=== PATIENT | male | born 1950 | race Two or more races ===

== ENCOUNTER 2016-10-21 19:42 | Emergency (ER) | payer SELFPAY ==
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
[2016-10-21 20:05] LABS: HEMATOCRIT 46.7 % (37.0-53.0); HEMOGLOBIN 16.3 g/dL (11.0-16.0); MCH 33.8 pg (27.0-34.0); MCHC 34.9 gm/dL (32.0-36.5); MCV 96.9 fl (83.0-98.0); MPV 10.5 fl (9.4-12.4); PLATELET COUNT 218 K/uL (150-450); RBC 4.82 M/uL (3.50-5.50); RDW-CV 12.2 % (11.9-14.6)
[2016-10-21 20:15] LABS: INR - (THERAPEUTIC) 1.08 (0.92-1.07); PROTIME 11.3 SECONDS (9.8-11.4)
[2016-10-21 20:29] LABS: ALBUMIN 3.8 gm/dL (3.5-5.0); ALK PHOS 101 IU/L (33-138); ALT 61 IU/L (12-78); ANION GAP 12.9 (10.0-19.0); AST 51 IU/L (10-40); BLOOD UREA NITROGEN 15 mg/dL (6-24); CALCIUM 9.4 mg/dL (8.5-10.5); CHLORIDE 105 mMol/L (96-110); CO2 24 mMol/L (22-32); CPK 125 IU/L (35-332); CREATININE 1.1 mg/dL (0.6-1.3); ESTIMATED GFR (MDRD EQUATION) > 60; POTASSIUM 3.9 mMol/L (3.7-5.1); SODIUM 138 mMol/L (135-145); TOTAL BILIRUBIN 0.7 mg/dL (0.0-1.5); TOTAL PROTEIN 7.7 g/dL (6.0-8.4)
[2016-10-21 20:32] LABS: ABSOLUTE NEUTROPHIL CT (ANC) 7.4 K/uL (1.4-9.0); LYMPHOCYTE % 31 %; MONOCYTE # 0.8 K/uL (0.0-1.0); SEGMENTED NEUTROPHIL # 7.4 K/uL (1.4-9.0); SEGMENTED NEUTROPHIL % 57 %
== END 2016-10-21 22:33 | disposition disaster alternative care site (69) ==
LOC: GACC 19:42
PROVIDERS: Emergency Medicine
DX: M54.2 Cervicalgia (principal); R07.9 Chest pain, unspecified; M19.90 Unspecified osteoarthritis, unspecified site; V63.5XXA Driver of heavy transport vehicle injured in collision with car, pick-up truck or van in traffic accident, initial encounter
CPT/HCPCS: G0480; J3010; J7030; Q9967